=== PATIENT | male | born 2000 | race Caucasian/White ===

== ENCOUNTER 2024-09-27 18:10 | Emergency (ER) | payer BC ==
[~2024-09-27] VITALS: Ht 167.6 cm; Wt 51.4 kg
[2024-09-27 18:22] VITALS: BP 153/87; PULSE 83; RESP 15; O2SAT 98
[2024-09-27] MEDS ORDERED: NO HOME MEDS (18:30)
--- NOTE | 2024-09-27 18:46 | Physician Documentation ---
History of Present Illness ~ General Chief Complaint: Abnormal Lab(s) Stated Complaint: STOMACH VIRUS Time Seen by MD: 18:42 History of Present Illness Initial Comments Patient is seen today with complaints of some abdominal discomfort earlier this morning as well as some bright red blood on toilet paper when wiping. Patient does admit to frequent hard stool and having to strain significantly when trying to pass stool. Patient currently denies any abdominal pain and denies any chest pain or shortness of breath or nausea, vomiting, diarrhea. Patient has no other concern or complaint at this time. Medication Reconciliation Allergies: Coded Allergies: No Known Allergies (Unverified , 09/27/24) Miscellaneous Medications Home Med List (No Home Medications), (Reported) Review of Systems Constitutional: Denies: chills, fever, weakness Eyes: Denies: pain, blurred vision ENT: Denies: ear pain, nose pain, throat pain, mouth pain Respiratory: Denies: cough, shortness of breath Cardiovascular: Denies: chest pain, palpitations Gastrointestinal: Denies: abdominal pain, nausea, vomiting Genitourinary: Denies: burning, dysuria Male Genitalia: Denies: penile discharge, testicular pain Neurological: Denies: headache, dizziness Musculoskeletal: Denies: pain, swelling Integumentary: Denies: rash, lesions Allergic/Immunologic: Denies: hives, itching Hematologic/Lymphatic: Denies: no symptoms reported Psychiatric: Denies: depression, anxiety Physical Exam Physical Exam Vital Signs: Temperature: 98.6, Source: Temporal, Heart Rate: 83, Respiratory Rate: 15, BP: 153/87, Pulse Oximetry: 98, Weight: 51.350 Physical Exam General: Awake and Alert, no acute distress. HEENT: Conjunctiva pink, Sclera clear, Mucus Membranes moist. Neck: Supple without masses and tenderness. Resp: Unlabored. Lungs clear to auscultation bilaterally. Heart: Regular Rate and rhythm, normal S1 and S2 without murmur, rub or gallop. Abdomen: Soft and non tender no organomegaly. Patient has negative Aranda's sign, no guarding, no rebound tenderness, no significant tenderness to palpation in any quadrant, abdomen is soft and nondistended. Rectal: Patient declined rectal exam at this time. Extremities: No cyanosis,clubbing or edema. Skin: Warm and Dry. Progress Results/Orders Results/Orders Orders - CARLENE WYNN PAC Ultrasound Of Abdomen (09/27/24 18:43) Completed Orders - CARLENE WYNN PAC Cbc/Diff (09/27/24 18:43) Lipase (09/27/24 18:43) BMP (09/27/24 18:43) Ua W/Microscopic, Cult If Ind (09/27/24 19:15) Vital Signs 09/27/24 18:22 Temp 98.6 Pulse 83 Resp 15 B/P (MAP) 153/87 Pulse Ox 98 Laboratory Tests Test 09/27/24 18:56 09/27/24 19:15 White Blood Count 9.0 Red Blood Count 4.74 Hemoglobin 15.2 Hematocrit 44.4 Mean Corpuscular Volume 93.7 Mean Corpuscular Hemoglobin 32.1 H Mean Corpuscular Hemoglobin Concent 34.3 Red Cell Distribution Width 13.2 Platelet Count 208 Mean Platelet Volume 8.4 Neutrophils (%) (Auto) 65.5 Lymphocytes (%) (Auto) 23.0 Monocytes (%) (Auto) 7.0 Eosinophils (%) (Auto) 4.0 Basophils (%) (Auto) 0.5 Neutrophils # (Auto) 5.9 Lymphocytes # (Auto) 2.1 Monocytes # (Auto) 0.6 Eosinophils # (Auto) 0.4 Basophils # (Auto) 0.0 CBC Comment Sodium Level 140 Potassium Level 4.1 Chloride Level 104 Carbon Dioxide Level 29.4 Anion Gap 7 L Blood Urea Nitrogen 14 Creatinine 1.06 Estimated GFR/1.73 m2 87 BUN/Creatinine Ratio 13.2 Glucose Level 91 Calcium Level 9.7 Albumin 4.3 Lipase 26 Chemistry Comments Urine Specimen Description Cln catch midstream Urine Color Yellow Urine Clarity Slightly cloudy Urine pH 7.0 Urine Specific [place] 1.020 Urine Protein Negative Urine Glucose (UA) Negative Urine Ketones Negative Urine Occult Blood Negative Urine Nitrite Negative Urine Bilirubin Negative Urine Urobilinogen 0.2 Urine Leukocyte Esterase Negative Urine RBC 0-2 Urine WBC None seen Urine Squamous Epithelial Cells None seen Urine Amorphous Phosphates 4+ Urine Bacteria None seen Urine Mucus None seen Urine Culture Indicated Not ind Volume Urine Centrifuged 10 ml Urine Comment Medical Decision Making Findings Patient is seen today with complaints of some abdominal discomfort earlier this morning as well as some bright red blood on toilet paper when wiping. Patient does admit to frequent hard stool and having to strain significantly when trying to pass stool. Patient currently denies any abdominal pain and denies any chest pain or shortness of breath or nausea, vomiting, diarrhea. Patient has no other concern or complaint at this time. Patient will continue monitoring for bright red blood per rectum. I strongly advised patient increase fiber intake in his diet and strive to have softer stool more regularly. Patient was given prescription for docusate sodium to be taken as needed for hard stool and constipation. Patient may also takes senna as needed. Patient will follow up with primary care in 2-5 days if no better as needed sooner. Return to ED with any worsening, concerning or changing symptoms. Departure Disposition: HOME / SELF CARE / HOMELESS Impression: Primary Impression: BRBPR (bright red blood per rectum) Additional Impression: Hemorrhoid Qualified Codes: K64.9 - Unspecified hemorrhoids Condition: Stable Referrals: NO PRIMARY CARE PROVIDER (PCP) Prescriptions Docusate Sodium (Docusate Sodium) 100 Mg Caps 1 CAP PO Q12H for constipation for 15 Days, #30 CAP 0 Refills Prov: CARLENE WYNN 09/27/24 Signature Scribe Signature: No scribe Attestation: No scribe CARLENE WYNN September 27, 2024 18:46
[2024-09-27 19:10] LABS: BASOPHILS % (AUTO) 0.5 % (0-1); EOSINOPHILS # (AUTO) 0.4 X10'3 (0-0.9); HEMATOCRIT 44.4 % (42.0-52.0); HEMOGLOBIN 15.2 g/dl (14.0-17.9); LYMPHOCYTES # (AUTO) 2.1 X10'3 (1.1-4.8); MEAN CORPUSCULAR HEMOGLOBIN 32.1 PG (27.0-31.0); MEAN CORPUSCULAR HGB CONC 34.3 g/dL (33.0-36.5); MEAN CORPUSCULAR VOLUME 93.7 FL (78-98); MEAN PLATELET VOLUME 8.4 FL (7.4-10.4); MONOCYTES # (AUTO) 0.6 X10'3 (0-0.9); NEUTROPHILS # (AUTO) 5.9 X10'3 (1.8-7.7); NEUTROPHILS % (AUTO) 65.5 % (42-75); PLATELET COUNT 208 X10'3 (140-440); RED BLOOD COUNT 4.74 X10'6 (4.70-6.10); RED CELL DISTRIBUTION WIDTH 13.2 % (11.5-14.5)
[2024-09-27 19:25] LABS: BILIRUBIN,URINE NEGATIVE (Neg); CLARITY,URINE SLIGHTLY CLOUDY (Clear); COLOR,URINE YELLOW (Yellow); GLUCOSE, URINE NEGATIVE (Neg); KETONES,URINE NEGATIVE (Neg); LEUKOCYTE ESTERASE ,URINE NEGATIVE (Neg); NITRITES, URINE NEGATIVE (Neg); OCCULT BLOOD,URINE NEGATIVE (Neg); PROTEIN,URINE NEGATIVE (Neg); UROBILINOGEN,URINE 0.2 E.U/dL (0.2-1.0)
[2024-09-27 19:25] LABS: ALBUMIN 4.3 G/DL (3.4-5.0); ANION GAP 7 (8-16); BLOOD UREA NITROGEN 14 MG/DL (7-18); BUN/CREATININE RATIO 13.2 (10.0-20.0); CALCIUM 9.7 MG/DL (8.5-10.1); CHLORIDE 104 MMOL/L (99-107); CREATININE 1.06 MG/DL (0.60-1.10); GLUCOSE 91 MG/DL (70-104); LIPASE 26 U/L (16-77); POTASSIUM 4.1 MMOL/L (3.5-5.1); SODIUM 140 MMOL/L (135-145); TOTAL CARBON DIOXIDE 29.4 MMOL/L (24-32); eCRCL 79 ML/MIN; eGFR 87 ML/MIN
[2024-09-27 19:32] LABS: UA COLLECTION TYPE CLN CATCH MIDSTREAM
[2024-09-27 19:33] LABS: RBC,URINE 0-2 /HPF (0-2); WBC,URINE NONE SEEN /HPF (0-4)
[2024-09-27 19:34] LABS: AMORPHOUS PHOSPHATES 4+; BACTERIA,URINE NONE SEEN /HPF (Neg); MUCUS STRANDS NONE SEEN /LPF (Neg); SQUAMOUS EPITHELIAL CELL,UR NONE SEEN /LPF (FEW)
[2024-09-27] MEDS ORDERED: DOCU100C40 PO (20:22)
[2024-09-27 20:25] VITALS: TEMP 98.6
== END 2024-09-27 20:30 | disposition home or self-care (01) ==
LOC: ER 18:11
DX: K62.5 Hemorrhage of anus and rectum (principal); K64.9 Unspecified hemorrhoids
CPT/HCPCS: 36415; 80048; 81001; 83690; 85025; 99283